=== PATIENT | male | born 1955 | race Caucasian/White ===

== ENCOUNTER → 2017-03-16 | Outpatient (CLI) | payer BC ==
[2016-02-11 08:51] VITALS: BP 98/57
[~2017-03-16] MED LIST: ASPI-482 PO; ATOR10TA PO; [UNRECOGNIZED DRUG - OTHER]
--- NOTE | 2017-03-16 12:40 | PCVCIMAG ---
APPROVED REPORT Study performed: 03/16/2017 09:12:41 EXAM: Comprehensive 2D, Doppler, and color-flow Echocardiogram Patient Location: Echo lab Status: routine BSA: 1.88 HR: 61 bpmBP: 122/76 mmHg Rhythm: NSR Other Information Study Quality: Adequate Indications Bicuspid Aortic Valve, aortic stenosis, aortic regurgitation 2D Dimensions LVEF(%): 58.24 (>50%) IVSd: 16.45 (7-11mm)LVOT Diam: 22.14 (18-24mm) LVDd: 37.34 mm PWd: 14.18 (7-11mm)Ascending Ao: 40.38 (22-36mm) LVDs: 26.09 (25-40mm) Left Atrium: 39.83 (27-40mm) Aortic Root: 37.95 mm LV Single Plane 4CH: 66.71 % LV Single Plane 2CH: 68.02 %Jaquez's LVEF: 67.36 % Biplane EF: 67.7 % Volumes Left Atrial Volume (Systole) Single Plane 4CH: 69.60 mLSingle Plane 2CH: 68.60 mL LA ESV Index: 37.00 mL/m2 Aortic Valve AoV Peak Andre.: 4.61 m/s AO Peak Gr.: 84.93 mmHgLVOT Max P.30 mmHg AO Mean Gr.: 44.23 mmHgLVOT Mean P.92 mmHg AO V2 Mean: 3.14 m/sLVOT Max V: 1.15 m/s AO V2 VTI: 113.97 cmLVOT Mean V: 0.82 m/s AVELINO (VTI): 1.05 [id number] V1 VTI: 31.08 cm AVELINO Vmax: 0.96 cm2 AI Vmax: 4.02 m/sSV (LVOT): 119.63 mL AI Beckham: 2.52 m/s2 AI PHT: 466.18 ms Mitral Valve E/A Ratio: 1.3 MV Decel. Time: 153.96 ms MV E Max Andre.: 0.75 m/s MV A Andre.: 0.57 m/s Pulmonary Valve PV Peak Andre.: 1.29 m/sPV Peak Gr.: 6.67 mmHg Pulmonary Vein P Vein S: 0.55 m/sP Vein A: 0.35 m/s P Vein D: 0.53 m/sP Vein A Dur.: 166.1 msec P Vein S/D Ratio: 1.04 Tricuspid Valve TR Peak Andre.: 2.27 m/s TR Peak Gr.: 20.60 mmHg Left Ventricle The left ventricle is normal size. There is normal LV segmental wall motion. Moderate concentric left ventricular hypertrophy. Left ventricular systolic function is normal. The left ventricular ejection fraction is within the normal range. LVEF is 65%. Grade II - pseudonormal filling dynamics. Right Ventricle The right ventricle is normal size. The right ventricular systolic function is normal. Atria Left atrium is mildly dilated. The right atrium size is normal. Aortic Valve The aortic valve is severely calcified. The aortic valve is bicuspid. Mild aortic regurgitation. There is severe valvular aortic stenosis. Calculated aortic valve area is 1 cm2 with maximum pressure gradient of 79 mmHg and mean pressure gradient of 44 mmHg. Mitral Valve The mitral valve is normal in structure. Trace mitral regurgitation. No evidence of mitral valve stenosis. Tricuspid Valve The tricuspid valve is normal in structure. Mild tricuspid regurgitation with PAP of 28 mmHg. Pulmonic Valve The pulmonary valve is normal in structure. There is mild-moderate pulmonic valvular regurgitation. Great Vessels The aortic root is normal in size. IVC is normal in size and collapses with >50% inspiration Pericardium There is no pericardial effusion. <Conclusion> The left ventricle is normal size. Moderate concentric left ventricular hypertrophy. Left ventricular systolic function is normal. Grade II - pseudonormal filling dynamics. The right ventricle is normal size. Left atrium is mildly dilated. The aortic valve is severely calcified. The aortic valve is bicuspid. There is severe valvular aortic stenosis. Calculated aortic valve area is 1 cm2 with maximum pressure gradient of 79 mmHg and mean pressure gradient of 44 mmHg. Mild aortic regurgitation. Trace mitral regurgitation. Mild tricuspid regurgitation with PAP of 28 mmHg.
== END | disposition home or self-care (01) ==
LOC: PCVCIMAG 08:49
PROVIDERS: ATTEND Internal Medicine Cardiovascular Disease
DX: I08.8 Other rheumatic multiple valve diseases (principal)
CPT/HCPCS: 93306

== ENCOUNTER → 2018-03-17 | Outpatient (CLI) | payer BC ==
[2016-02-11 08:51] VITALS: BP 98/57
--- NOTE | 2018-03-22 14:35 | PCVCIMAG ---
APPROVED REPORT Study performed: 03/17/2018 08:11:06 EXAM: Comprehensive 2D, Doppler, and color-flow Echocardiogram Patient Location: Echo lab Status: routine BSA: 1.88 HR: 65 bpmBP: 122/76 mmHg Rhythm: NSR Other Information Study Quality: Adequate Indications severe aortic stenosis, bicuspid aortic valve 2D Dimensions IVSd: 16.58 (7-11mm)LVOT Diam: 21.72 (18-24mm) LVDd: 34.05 mm PWd: 14.45 (7-11mm)Ascending Ao: 39.92 (22-36mm) LVDs: 25.37 (25-40mm) Left Atrium: 37.36 (27-40mm) Aortic Root: 38.89 mm LV Single Plane 4CH: 60.95 % LV Single Plane 2CH: 61.87 % Biplane EF: 60.7 % Volumes Left Atrial Volume (Systole) Single Plane 4CH: 56.90 mLSingle Plane 2CH: 78.68 mL LA ESV Index: 38.00 mL/m2 Aortic Valve AoV Peak Andre.: 4.64 m/s AO Peak Gr.: 86.10 mmHgLVOT Max P.89 mmHg AO Mean Gr.: 45.85 mmHgLVOT Mean P.20 mmHg AO V2 Mean: 3.10 m/sLVOT Max V: 1.21 m/s AO V2 VTI: 113.53 cmLVOT Mean V: 0.85 m/s AVELINO (VTI): 1.00 [id number] V1 VTI: 30.63 cm AVELINO Vmax: 0.97 cm2 AI Vmax: 4.47 m/sSV (LVOT): 113.44 mL AI Boone: 2.99 m/s2 AI PHT: 434.07 ms Mitral Valve E/A Ratio: 1.3 MV Decel. Time: 162.83 ms MV E Max Andre.: 0.72 m/s MV A Andre.: 0.57 m/s IVRT: 83.04 ms Pulmonary Vein P Vein S: 0.33 m/sP Vein A: 0.28 m/s P Vein D: 0.49 m/sP Vein A Dur.: 134.9 msec P Vein S/D Ratio: 0.67 Tricuspid Valve TR Peak Andre.: 2.26 m/s TR Peak Gr.: 20.47 mmHg Left Ventricle The left ventricle is normal size. There is normal LV segmental wall motion. Moderate concentric left ventricular hypertrophy. Left ventricular systolic function is normal. The left ventricular ejection fraction is within the normal range. LVEF is 60-65%. Grade II - pseudonormal filling dynamics. Right Ventricle The right ventricle is normal size. The right ventricular systolic function is normal. Atria Left atrium is mildly dilated. The right atrium size is normal. Aortic Valve The aortic valve is severely calcified. The aortic valve is probably bicuspid. Mild to moderate aortic regurgitation. There is severe valvular aortic stenosis. Calculated aortic valve area is 1 cm2 with maximum pressure gradient of 86 mmHg and mean pressure gradient of 46 mmHg. Mitral Valve The mitral valve is normal in structure. Mild mitral regurgitation. No evidence of mitral valve stenosis. Tricuspid Valve The tricuspid valve is normal in structure. Mild tricuspid regurgitation with PAP of 27 mmHg. Pulmonic Valve The pulmonary valve is normal in structure. Mild pulmonic regurgitation. Great Vessels The aortic root is normal in size. IVC is normal in size and collapses >50% with inspiration. Pericardium There is no pericardial effusion. There is no pleural effusion. <Conclusion> The left ventricle is normal size. Moderate concentric left ventricular hypertrophy. Left ventricular systolic function is normal. Grade II - pseudonormal filling dynamics. The right ventricle is normal size. Left atrium is mildly dilated. The right atrium size is normal. The aortic valve is severely calcified. The aortic valve is probably bicuspid. There is severe valvular aortic stenosis. Mild to moderate aortic regurgitation. Mild mitral regurgitation. Mild tricuspid regurgitation with PAP of 27 mmHg.
== END | disposition home or self-care (01) ==
LOC: PCVCIMAG 08:29
PROVIDERS: ATTEND Internal Medicine Cardiovascular Disease
DX: I08.3 Combined rheumatic disorders of mitral, aortic and tricuspid valves (principal)
CPT/HCPCS: 93306

== ENCOUNTER → 2018-12-26 | Outpatient (CLI) | payer BC ==
[2016-02-11 08:51] VITALS: BP 98/57
--- NOTE | 2018-12-26 09:58 | PCVCIMAG ---
APPROVED REPORT Study performed: 12/26/2018 08:44:12 EXAM: Comprehensive 2D, Doppler, and color-flow Echocardiogram Patient Location: Echo lab Status: routine BSA: 1.90 HR: 77 bpmBP: 110/70 mmHg Rhythm: NSR Other Information Study Quality: Good Risk Factors: Cardiac Risk Factors: Hyperlipidemia Indications Aortic Valve Disease 2D Dimensions IVSd: 20.21 (7-11mm)LVOT Diam: 21.48 (18-24mm) LVDd: 33.31 mm PWd: 17.55 (7-11mm)Ascending Ao: 41.14 (22-36mm) LVDs: 20.56 (25-40mm) Left Atrium: 41.83 (27-40mm) Aortic Root: 34.87 mm LV Single Plane 4CH: 63.67 % LV Single Plane 2CH: 67.17 % Biplane EF: 64.5 % Volumes Left Atrial Volume (Systole) Single Plane 4CH: 44.47 mLSingle Plane 2CH: 35.48 mL LA ESV Index: 22.00 mL/m2 Aortic Valve AoV Peak Andre.: 4.53 m/s AO Peak Gr.: 82.07 mmHgLVOT Max P.00 mmHg AO Mean Gr.: 47.32 mmHgLVOT Mean P.04 mmHg AO V2 Mean: 3.31 m/sLVOT Max V: 1.10 m/s AO V2 VTI: 92.66 cmLVOT Mean V: 0.84 m/s AVELINO (VTI): 1.03 [id number] V1 VTI: 26.26 cm AVELINO Vmax: 0.88 cm2 AI Vmax: 4.02 m/sSV (LVOT): 95.15 mL AI Rush: 2.32 m/s2 AI PHT: 501.05 ms Mitral Valve E/A Ratio: 1.1 MV Decel. Time: 232.05 ms MV E Max Andre.: 0.76 m/s MV A Andre.: 0.72 m/s IVRT: 166.09 ms TDI E/Lateral E': 10.86E/Medial E': 12.67 Medial E' Andre.: 0.06 m/s Lateral E' Andre.: 0.07 m/s Pulmonary Valve PV Peak Gr.: 2.30 mmHg Pulmonary Vein P Vein S: 0.55 m/sP Vein A: 0.42 m/s P Vein D: 0.39 m/sP Vein A Dur.: 110.7 msec P Vein S/D Ratio: 1.41 Left Ventricle The left ventricle is normal size. There is normal LV segmental wall motion. Moderate concentric left ventricular hypertrophy. Left ventricular systolic function is normal. The left ventricular ejection fraction is within the normal range. LVEF is 60-65%. Grade II - pseudonormal filling dynamics. Right Ventricle The right ventricle is normal size. The right ventricular systolic function is normal. Atria The left atrium size is normal. The right atrium size is normal. Aortic Valve Aortic valve is possibly bicuspid. Aortic Valve is severely calcified. Mild to moderate aortic regurgitation. Severe aortic stenosis. Calclulated aortic valve area is 0.9cm2. Peak gradient is 83mmHg. Mean gradient is 48mmHg. Mitral Valve The mitral valve is normal in structure. There is no mitral valve regurgitation noted. No evidence of mitral valve stenosis. Tricuspid Valve The tricuspid valve is normal in structure. There is no tricuspid valve regurgitation noted. Pulmonic Valve The pulmonary valve is normal in structure. Trace pulmonic regurgitation. Great Vessels The aortic root is normal in size. The ascending aorta is borderline dilated measuring 4.1-4.3cm. IVC is normal in size and collapses >50% with inspiration. Pericardium There is no pericardial effusion. <Conclusion> The left ventricle is normal size. Moderate concentric left ventricular hypertrophy. Left ventricular systolic function is normal. Grade II - pseudonormal filling dynamics. The right ventricle is normal size. The left atrium size is normal. Aortic valve is possibly bicuspid. Aortic Valve is severely calcified. Mild to moderate aortic regurgitation. Severe aortic stenosis. There is no mitral valve regurgitation noted. There is no tricuspid valve regurgitation noted.
== END | disposition home or self-care (01) ==
LOC: PCVCIMAG 08:38
PROVIDERS: ATTEND Internal Medicine Cardiovascular Disease
DX: I35.0 Nonrheumatic aortic (valve) stenosis (principal); E78.00 Pure hypercholesterolemia, unspecified; R00.1 Bradycardia, unspecified; Z88.0 Allergy status to penicillin
CPT/HCPCS: 93306